=== PATIENT | female | born 1975 | race Two or more races ===

== ENCOUNTER 2016-04-21 01:01 | Emergency (ER) | payer MEDICAID ==
--- NOTE | ~2016-04-21 | ER ---
PATIENT'S NAME: MARIANELA FIGUEROA [facility] AGE: 40 Y [address] ROOM: [place] [address] LOCATION: ED ADMIT DATE: 04/21/2016 ER/Outpatient Report DISCHARGE DATE: 04/21/2016 FAMILY PHYSICIAN: Dee Sorenson MD ATTENDING PHYSICIAN: Alexys Potter Admission date and time documented in the medical record. I saw the patient at 0120 hours. CHIEF COMPLAINT: Low back pain. HISTORY OF PRESENT ILLNESS: The patient is a 40-year-old female, who has a history of chronic low back pain, chronic herniated disk in her lumbar spine. She has had increasing pain over the past week, worsening tonight. She has a little pain radiating down into her right buttock and down into her right leg. She is about 14 weeks' gestation with her current . No fall or trauma. No recent colds, coughs, flus, fever, chills, or sweats. No lightheadedness, dizziness, syncope, or near syncope. No headache, eyes, ears, nose, throat, or neck pain. Has no thoracic pain. No chest pain or shortness of breath. No abdominal pain, nausea, vomiting, or diarrhea. No urinary frequency, urgency, or dysuria. No joint or muscle swelling, redness, or pain. No skin eruptions or rash. No endocrine problems, neuro changes, or psych issues. Has had chronic back pain. Has had a previous back surgery [place] [address] Reyes. Pain is causing her to tight in her muscles. She is having a lot of spasm. HOME MEDICATIONS: See attached medication list. ALLERGIES: CODEINE. SOCIAL HISTORY: Nonsmoker, nondrinker. SIGNIFICANT PAST MEDICAL HISTORY: Chronic low back pain. OPERATIONS: Low back surgery, cholecystectomy. REVIEW OF SYSTEMS: All systems reviewed by me are negative with the exception of those discussed PATIENT'S NAME: MARIANELA FIGUEROA [facility] AGE: 40 Y [address] ROOM: [place] [address] LOCATION: [facility] ADMIT DATE: 04/21/2016 ER/Outpatient Report DISCHARGE DATE: 04/21/2016 FAMILY PHYSICIAN: Dee Sorenson MD ATTENDING PHYSICIAN: Alexys Potter in the history of present illness. PHYSICAL EXAMINATION: VITAL SIGNS: Temperature 98 tympanic, pulse 92, respirations 18, blood pressure 121/65, O2 saturation on room air is 100%. MUSCULOSKELETAL: On examination, the patient has tenderness across her lower back. Worse in the right sacroiliac area. A little bit of tenderness in the sciatic notch in the right buttock. Straight leg raising is positive on the right, negative on the left. Neurovascularly intact. Pulse intact. SKIN: No skin eruptions or rash. IMPRESSION: Acute on chronic low back pain. PLAN: The patient was given morphine 10 mg IM in the emergency room, Phenergan 50 mg IM in the emergency room. Discharged home. Observation. Activity as tolerated. Heat, ice, or combination of heat followed by ice to sore areas intermittently as needed. Continue present home medications and care. Percocet 5/325 one to two every 4 to 6 hours as needed for pain, #16. Physical therapy if needed. Follow up with personal physician in 1 to 2 days. The patient and her doctor need to work out a plan for pain control since her may be worsening her back pain. They also need to let us know here in the emergency room what we can do for her with her to help with her pain if she does come to the emergency department. Discussion ensued with the patient concerning my findings and recommendations, she understands. MD LI SANCHEZ/modl /[id number] d: 04/21/16 0300 t: 04/21/16 1804, OUTPATIENT REPORT
[~2016-04-21 01:01] MED LIST: APNO TOP; DERMOPLAST SPRA56 GM TOP; LANSINOH7 GM TOP; MOTRIN800 MG PO; NORCO 7.5-3251 EACH PO; PERCOCET 5-3251 EACH OR; PRENATAL 1+1)(P1 TAB PO; TYLENOL325 MG OR
== END 2016-04-21 02:20 | disposition disaster alternative care site (69) ==
LOC: GMED 01:01
DX: O99.89 Other specified diseases and conditions complicating pregnancy, childbirth and the puerperium (principal); G89.29 Other chronic pain; M54.5 Low back pain; Z3A.14 14 weeks gestation of pregnancy; Z88.5 Allergy status to narcotic agent; Z90.49 Acquired absence of other specified parts of digestive tract; Z98.890 Other specified postprocedural states
CPT/HCPCS: J2270; J2550

== ENCOUNTER → 2016-05-28 | Outpatient (CLI) | payer MEDICAID ==
[~2016-05-28] MED LIST changes: +ACETAMINOPHEN325 MG PO
== END | disposition disaster alternative care site (69) ==
LOC: GRAD 08:58
DX: O09.522 Supervision of elderly multigravida, second trimester (principal); Z3A.19 19 weeks gestation of pregnancy

== ENCOUNTER 2016-09-08 05:01 | Outpatient (CLI) | payer MEDICAID ==
[~2016-09-08] VITALS: Ht 167.6 cm; Wt 91.6 kg
[~2016-09-08 05:01] MED LIST changes: -ACETAMINOPHEN325 MG PO
[2016-09-08 06:03] LABS: BASOPHIL % 0.4 %; EOSINOPHIL # 0.1 K/uL (0.0-0.5); EOSINOPHIL % 0.7 %; HEMATOCRIT 34.6 % (33.0-46.0); HEMOGLOBIN 11.7 g/dL (11.0-15.0); IMMATURE GRANULOCYTE # 0.2 K/uL (0.0-0.3); IMMATURE GRANULOCYTE % 1.6 %; LYMPHOCYTE # 1.8 K/uL (0.8-4.0); LYMPHOCYTE % 16.5 %; MCH 31.7 pg (27.0-34.0); MCHC 33.8 gm/dL (32.0-36.5); MCV 93.8 fl (83.0-98.0); MONOCYTE # 0.7 K/uL (0.0-1.0); MONOCYTE % 6.7 %; MPV 10.1 fl (9.4-12.4); NEUTROPHIL % 74.1 %; NRBC % 0 /100WBC (0-0.00); PLATELET COUNT 182 K/uL (150-450); RBC 3.69 M/uL (3.50-5.50); RDW-CV 13.3 % (11.9-14.6); WBC 10.8 K/uL (4.0-11.0)
[2016-09-08 06:20] LABS: BILIRUBIN URINE NEGATIVE (NEGATIVE); BLOOD URINE NEGATIVE /UL (NEGATIVE); COLOR URINE YELLOW (YELLOW); GLUCOSE URINE NEGATIVE (NEGATIVE); KETONE URINE NEGATIVE (NEGATIVE); LEUKOCYTES URINE NEGATIVE /UL (NEGATIVE); NITRITE URINE NEGATIVE (NEGATIVE); PH URINE 6.5 (4.0-8.0); PROTEIN URINE NEGATIVE (NEGATIVE); TURBIDITY URINE CLEAR (CLEAR); UROBILINOGEN URINE NORMAL (NORMAL)
[2016-09-08] MEDS ORDERED: PRENATAL 1+1)(P1 TAB PO (07:00)
[2016-09-08] MEDS ORDERED: ACETAMINOPHEN325 MG PO (07:00)
[2016-09-08 07:57] LABS: ALBUMIN 2.4 gm/dL (3.5-5.0); ALK PHOS 84 IU/L (33-138); ALT 10 IU/L (12-78); ANION GAP 11.5 (10.0-19.0); AST 8 IU/L (10-40); BLOOD UREA NITROGEN 7 mg/dL (6-24); CALCIUM 7.8 mg/dL (8.5-10.5); CHLORIDE 108 mMol/L (96-110); CO2 22 mMol/L (22-32); CREATININE 0.5 mg/dL (0.5-1.1); POTASSIUM 3.5 mMol/L (3.7-5.1); SODIUM 138 mMol/L (135-145); TOTAL BILIRUBIN 0.3 mg/dL (0.0-1.5); TOTAL PROTEIN 6.1 g/dL (6.0-8.4)
== END 2016-09-08 09:55 | disposition disaster alternative care site (69) ==
LOC: GOBS 05:01 → GOBM 05:01
PROVIDERS: Family Medicine
DX: O60.03 Preterm labor without delivery, third trimester (principal); Z3A.34 34 weeks gestation of pregnancy; Z88.5 Allergy status to narcotic agent; Z79.899 Other long term (current) drug therapy
CPT/HCPCS: G0463; J2001; J7030; J7120

== ENCOUNTER 2016-09-26 03:57 | Outpatient (CLI) | payer MEDICAID ==
[~2016-09-26] VITALS: Ht 167.6 cm; Wt 93.7 kg
[~2016-09-26 03:57] MED LIST changes: +ACETAMINOPHEN325 MG PO
== END 2016-09-26 05:30 | disposition disaster alternative care site (69) ==
LOC: GMED 03:57 → GOBS 03:57 → GMED 05:30
DX: Z36 Encounter for antenatal screening of mother (principal)
CPT/HCPCS: G0463

== ENCOUNTER 2016-10-15 06:31 | Inpatient (IN) | payer MEDICAID ==
[~2016-10-15] VITALS: Ht 167.6 cm; Wt 95.4 kg
--- NOTE | ~2016-10-15 | OR ---
PATIENT'S NAME: MARIANELA FIGUEROA [facility] AGE: 40 Y [address] ROOM: [place] [address] LOCATION: [facility] ADMIT DATE: 10/15/2016 OR/Procedure Report DISCHARGE DATE: FAMILY PHYSICIAN: Dee Sorenson MD ATTENDING PHYSICIAN: Dee Sorenson SURGEON: Dee Sorenson MD TRANSPORTATION CLERK: DATE OF PROCEDURE: 10/15/2016 DESCRIPTION OF DELIVERY: At 12:52 hours, this 40-year-old, G7, P5 under epidural anesthesia, delivered a viable male weighing 7 pounds 6 ounces with scores of 8 and 9 at one and five minutes. Mom asked for induction of labor at 39+ weeks secondary to having multiple contractions over the last several weeks. Cervix was found to be favorable, and therefore, this morning, we brought her in and did artificial rupture of membranes producing clear fluids. She was already 3 cm and 50% effaced. Pitocin was started, only brought to 5 mU when she gets to complete within four hours of starting her induction. Delivery was via spontaneous vaginal delivery to a sterile field. There was a nuchal cord that was reduced at the perineum. The baby was bulb suctioned at delivery. The baby was stimulated and had a nice cry. The cord was doubly clamped, and then Mom cut the cord. Baby was then handed to Mom to do [id number]. Cord blood was sent for analysis. The intact placenta with three-vessel cord delivered spontaneously shortly after delivery of the baby. Her Pitocin was opened up and given through her bag of IV fluids. Her uterus is massaged and clamped down nicely. The patient's cervix and perineum and vagina were explored. She has no tears and no repair necessary. ESTIMATED BLOOD LOSS: 300 mL. COUNT RESULTS: Both sponge counts and needle counts are correct. CONDITION: Both Mom and baby are doing well and are in stable condition. MD EMILEE FLOOD/angelical /[id number] d: 10/15/[id number] t: 10/16/16 1221, OPERATIVE SUMMARY
[2016-10-15 08:03] LABS: BASOPHIL % 0.3 %; EOSINOPHIL % 0.4 %; HEMATOCRIT 34.9 % (33.0-46.0); HEMOGLOBIN 11.8 g/dL (11.0-15.0); IMMATURE GRANULOCYTE # 0.1 K/uL (0.0-0.3); IMMATURE GRANULOCYTE % 1.2 %; LYMPHOCYTE # 1.6 K/uL (0.8-4.0); LYMPHOCYTE % 16.8 %; MCH 31.7 pg (27.0-34.0); MCHC 33.8 gm/dL (32.0-36.5); MCV 93.8 fl (83.0-98.0); MONOCYTE # 0.7 K/uL (0.0-1.0); MONOCYTE % 7.6 %; MPV 10.2 fl (9.4-12.4); NEUTROPHIL % 73.7 %; NRBC % 0 /100WBC (0-0.00); PLATELET COUNT 172 K/uL (150-450); RBC 3.72 M/uL (3.50-5.50); RDW-CV 13.6 % (11.9-14.6); WBC 9.4 K/uL (4.0-11.0)
[2016-10-16 04:13] LABS: BASOPHIL # 0.1 K/uL (0.0-0.2); BASOPHIL % 0.6 %; EOSINOPHIL # 0.1 K/uL (0.0-0.5); EOSINOPHIL % 0.8 %; HEMATOCRIT 30.7 % (33.0-46.0); HEMOGLOBIN 10.1 g/dL (11.0-15.0); IMMATURE GRANULOCYTE # 0.1 K/uL (0.0-0.3); IMMATURE GRANULOCYTE % 0.8 %; LYMPHOCYTE # 2.4 K/uL (0.8-4.0); LYMPHOCYTE % 22.5 %; MCHC 32.9 gm/dL (32.0-36.5); MCV 94.2 fl (83.0-98.0); MONOCYTE # 0.7 K/uL (0.0-1.0); MONOCYTE % 6.2 %; MPV 10.3 fl (9.4-12.4); NEUTROPHIL # (ANC) 7.2 K/uL (1.8-7.8); NEUTROPHIL % 69.1 %; NRBC % 0 /100WBC (0-0.00); PLATELET COUNT 153 K/uL (150-450); RBC 3.26 M/uL (3.50-5.50); RDW-CV 13.8 % (11.9-14.6); WBC 10.5 K/uL (4.0-11.0)
--- NOTE | 2016-10-16 05:07 | NUR ---
VITAL SIGNS STABLE. UP AD AMY IN ROOM. FUNDUS FIRM AT UMBILICUS. SMALL FLOW. 2150 MOTRIN. INDEPENDENT WITH CARES.
--- NOTE | 2016-10-16 14:01 | NUR ---
Met with patient and baby at bedside today. Introduced myself and explained my role with the CM department. Patient states she has all the necessary items for baby including a crib and bassinet, clothes, diapers, wipes, and bottles. She sates she has 5 other children between the ages of 22yo to the . FOB is not involved. Patient states she has wonderful support from her family. Instructed her to contact Medicaid and inform them of baby's . Provided her with a list of community resources here in [place] and also left her the handout on post depression. No other needs at this time. Will continue to follow and offer supports.
[2016-10-17] MEDS ORDERED: APNO TOP (13:14)
[2016-10-17] MEDS ORDERED: LANSINOH7 GM TOP (13:14)
[2016-10-17] MEDS ORDERED: MOTRIN800 MG PO (13:14)
[2016-10-17] MEDS ORDERED: ACETAMINOPHEN325 MG PO (13:15)
== END 2016-10-17 14:45 | disposition disaster alternative care site (69) | DRG 775 ==
LOC: GOBS 06:31 → GOBM 06:31 → GOBS 06:35 → GOBM 06:36 → GOBS 10-17 14:45
PROVIDERS: ADMIT Family Medicine
PROC: 10E0XZZ Delivery of Products of Conception, External Approach (ICD-10-PCS; principal; 2016-10-15)
PROC: 3E033VJ Introduction of Other Hormone into Peripheral Vein, Percutaneous Approach (ICD-10-PCS; principal; 2016-10-15)
PROC: 10907ZC Drainage of Amniotic Fluid, Therapeutic from Products of Conception, Via Natural or Artificial Opening (ICD-10-PCS; principal; 2016-10-15)
DX: O69.81X0 Labor and delivery complicated by cord around neck, without compression, not applicable or unspecified (principal); Z37.0 Single live birth; Z3A.39 39 weeks gestation of pregnancy
CPT/HCPCS: J2001; J2590; J3010; J7120